=== PATIENT | male | born 1955 | race Caucasian/White ===

== ENCOUNTER 2016-11-27 14:13 | Emergency (ER) | payer SELFPAY ==
--- NOTE | 2016-11-27 15:54 | DIAGNOSTIC IMAGING REPORT ---
PROCEDURE: CTA THORAX ABDOMEN PELVIS INDICATION: JAUNDICE TECHNIQUE: 116 ml of Isovue 370 injected intravenously and axial images were obtained of the entire thorax, abdomen, and pelvis with 3D MIP sagittal and coronal reformations. COMPARISON: None. FINDINGS: THORAX: Minor atherosclerosis of the aorta. No dissection or aneurysm. Normal pulmonary arteries without evidence of pulmonary embolus. Respiratory artifacts. Severe emphysema. Approximate 3.5 x 2.5 cm right hilar mass/adenopathy. 1.1 x 1.8 cm subcarinal lymph node. No effusion. Normal heart size. Moderate degenerative changes of the spine. ABDOMEN: Mild atherosclerosis of the aorta. No dissection. Enlarged liver (21 cm) with multiple ill-defined hypoenhancing liver masses, largest in the left hepatic lobe, 7 cm. Enlarged magui hepatis nodes, 4.5 cm which appears to account for the moderate intrahepatic ductal dilation. CBD not dilated. Enlarged right periaortic lymph nodes, 3.5 cm and 1.5 cm right retrocrural lymph node. Small ascites. Gallbladder sludge. Thickening of the gallbladder wall which is likely due to ascites. There is a 3 x 1.5 cm cystic mass in the tail of the pancreas. 2 cm hypoenhancing splenic lesion. 1.8 cm left adrenal mass. Right adrenal gland and the kidneys are unremarkable. There is thickening of the colonic wall which may be due to ascites colitis is a consideration. PELVIS: Mild atherosclerosis. No dissection or aneurysm. Appendix is not clearly visualized. Mild wall thickening of the sigmoid colon. Mildly enlarged prostate (5 cm). Normal bladder. Small ascites. Mild degenerative changes of the spine. IMPRESSION: 1. Mild atherosclerosis without dissection or aneurysm 2. Severe emphysema with right hilar mass/adenopathy. There are bulky magui hepatis and right periaortic lymph nodes with multiple hepatic masses, splenic mass, left adrenal mass, tail of pancreas cystic mass and small ascites. Differential diagnosis includes lymphoma versus lung primary with metastases. Primary pancreatic neoplasm is less likely. Recommend CT guided biopsy of liver lesions. 3. Moderate intrahepatic ductal dilation secondary to the magui hepatis adenopathy/mass 4. Thickening of the colonic wall likely due to ascites. Colitis is less likely. Correlate clinically. 5. Gallbladder sludge 6. Results discussed with Felisha Burger. All CT scans at this facility use dose modulation, iterative reconstruction, and/or weight-based dosing when appropriate to reduce radiation dose to as low as reasonably achievable.
--- NOTE | 2016-11-27 16:09 | DIAGNOSTIC IMAGING REPORT ---
PROCEDURE: XR CHEST 1 VIEW INDICATION: SHORTNESS OF BREATH TECHNIQUE: Portable AP view 03:40 p.m. COMPARISON: Chest CT 11/27/2016 FINDINGS: Lungs are clear. No acute infiltrates. There is right hilar adenopathy. IMPRESSION: 1. Lungs clear. 2. Right hilar adenopathy.
--- NOTE | 2016-11-27 17:10 | ED NURSING NOTES ---
Clinical Report - Nurses [facility] [address] [place] [address] 11/27/2016 14:15 Patient: ZOHREH FRASER TRIAGE Triage time 14:25. Acuity: LEVEL 3. Chief Complaint: ABDOMINAL PAIN. No acute distress. SEPSIS SCREEN: Sepsis Screen. Negative (no infection suspected/documented). Temperature not greater than 38.3 degrees C (101 degrees F). Heart rate not greater than 90. Respiratory rate not greater than 20. FRANK COMA SCORE: Frank Coma Scale: 15- eyes open spontaneously (4); best verbal response- oriented x 4 (5); best motor response- obeys commands (6). --14:36 Mora Cobos R.N. 14:25 11/27/16. BP: 119/65. HR: 74. RR: 18. O2 saturation: 100% on room air. Temp: 97.5 F (axillary). Pain level now: 03/19. --14:36 Mora Cobos R.N. Acuity: LEVEL 2. --14:36 Mora Cobos R.N. Weight: 63.5 kg stated. Height/Length: 72 inches Per Patient. BMI: 19. --14:26 Mora Cobos R.N. Medications Ex-Lax Oral. --14:30 Mora Cobos R.N. Ibuprofen Oral. --14:30 Mora Cobos R.N. Vitamins/Minerals Oral. --14:31 Mora Cobos R.N. Allergies No Known Drug Allergy. --14:31 Mora Cobos R.N. Medication/allergy information source: the patient. --14:36 Mora Cobos R.N. History Arrived by private vehicle. Historian: patient and family. Accompanied by family. Primary physician (francisco javier). ( hasn't eaten x3 days, abd pain x 3 days, SOB x 1 week.). Onset. (3 days ago). Treatment PREVENTIVE MEDICINE SPECIALIST: None. SOCIAL HX: Heavy tobacco smoker (cigarette)- 1-2 packs per day. Alcohol use. Patient is a recovering alcoholic. No drug use. --14:36 Mora Cobos R.N. SOCIAL HX: ( SENIOR DRAFTER at bedside). --14:41 Mora Cobos R.N. SOCIAL HX: ( triage BP was assessed on left arm). --15:25 Mora Cobos R.N. PROBLEMS: Jaundice. Liver failure. Hypertension. --14:32 Mora Cobos R.N. ADDITIONAL SURGERIES: Chest tube . --14:32 Mora Cobos R.N. Interventions ID band on patient. To treatment room. --14:36 Mora Cobos R.N. PHYSICAL ASSESSMENT To room via wheelchair. GENERAL / NEURO / PSYCH: Alert. Oriented X 4. Appears in pain. RESPIRATORY: Mild respiratory distress. CVS: Capillary refill less than 2 seconds. GI / : Abdominal distention. ( notable upper abdominal pulsating, midline). SKIN: ( extensive marked jaundice). --14:38 Mora Cobos R.N. EXTREMITIES: Bilateral 4+ edema of the lower extremities involving both feet, both ankles and both lower legs. --14:41 Mora Cobos R.N. NURSING PROGRESS NOTES The plan of care for this patient has been created. environmental monitoring specialist, pulse oximeter and NIBP monitor placed on patient. Patient gowned. Head of bed elevated. Call light placed in reach. Side rails up x 2. Bed placed in lowest position. Brakes of bed on. Patient ready for evaluation- chart flagged. --14:41 Mora Cobos R.N. 14:33 11/27/2016 Site #1 started via IV in the right forearm with an 20g angiocath, with aseptic technique and good blood return; one attempt. Blood drawn: rainbow set. Labeled in the presence of the patient and sent to the lab. Saline lock flushed with 10 mL saline. --14:43 Mora Cobos R.N. 14:43 11/27/2016 Site #2 started via IV in the left forearm with an 20g angiocath, with aseptic technique and good blood return; one attempt. Blood drawn: cultures x1. Labeled in the presence of the patient and sent to the lab. Saline lock flushed with 10 mL saline (lactate). --14:44 Mroa Cobos R.N. 14:45. Patient transported to CT by stretcher with nurse. --15:14 Mora Cobos R.N. 15:10. Patient returned from CT by stretcher with nurse. --15:14 Mora Cobos R.N. 15:14 11/27/16. BP: 127/77 taken on the right arm. HR: 70. RR: 18. O2 saturation: 100%. Pain level now: 11/17. --15:15 Mora Cobos R.N. 15:18 11/27/2016 Started bag #1 1000 mL IV Fluids IV NS (Saline); at 999 mL/hr over 1 hour(s) via site #1 via IV pump. Allergies verified and confirmed 5 rights. IV patency established. IV site checked: no pain, redness, or swelling. IV flushed thoroughly pre- and post-medication administration. --15:18 Sandy Real R.N. Reassessment after procedure and intervention. He reports no complaints and he is calm and resting quietly. --15:21 Mora Cobos R.N. 15:40 11/27/16. Critical value relayed to ED by Zoran Berrios. Critical value received by JULIET Delgado. total bili 26. K: 2.8. Critical value read back. Verified lab result and patient ID. ED physician notifed of critical value. --15:40 Sandy Real R.N. 15:30. Patient ID band checked for patient name and birthdate: patient confirmed. Instructions provided to collect clean catch urine and patient verbalized understanding. Clean catch urine collected with return of brown-colored urine; sample sent to lab for urinalysis, culture and drug screen. Specimen labeled in the presence of the patient (black urine). --15:54 Mora Cobos R.N. 16:22 11/27/2016 IV Fluids IV NS Discontinued: bag #1 infused. Total amount infused: 1000 mL. IV patency established. IV site checked: no pain, redness, or swelling. IV flushed thoroughly. --16:37 Mora Cobos R.N. 16:27 11/27/2016 Started bag #2 1000 mL IV Fluids IV NS (Saline); at 200 mL/hr over 2 hour(s) via site #1 via IV pump. Allergies verified and confirmed 5 rights. IV patency established. IV site checked: no pain, redness, or swelling. IV flushed thoroughly pre- and post-medication administration. Completed per protocol. --16:37 Mora Cobos R.N. 16:28 11/27/2016 Started 20 meq of KCL (Potassium Chloride) IVPB in bag #1 100 mL; at 50 mL/hr over 2 hour(s) via site #1 via IV pump. Allergies verified and confirmed 5 rights. IV patency established. IV site checked: no pain, redness, or swelling. IV flushed thoroughly pre- and post-medication administration. Completed per protocol. --16:38 Mora Cobos R.N. 16:47 11/27/16. BP: 140/86. HR: 66. RR: 16. O2 saturation: 100% on nasal cannula at 2 liters/minute. --16:47 Sami Rosado R.N. 16:47 11/27/16. --16:47 Sami Rosado R.N. 16:48 11/27/16. Cardiac rhythm: normal sinus rhythm; (67). --16:48 Sami Rosado R.N. ( pt. up using commode. 100cc urine output. pt. sitting upright on gourney.). --17:08 Natalee Sheehan ER TechMartha 17:34 11/27/2016 Toradol IVP 30 mg given over 1 minute(s) via site #1. Allergies verified and confirmed 5 rights. IV patency established. IV site checked: no pain, redness, or swelling. IV flushed thoroughly pre- and post-medication administration. IVP given by RN. --17:36 Mora Cobos R.N. 17:47 11/27/16. BP: 129/67. HR: 66. RR: 15. O2 saturation: 100%. Pain level now 7/10. --17:47 Mora Cobos R.N. The patient is calm and resting quietly. --17:47 Mora Cobos R.N. 18:07 11/27/2016 Zofran (Ondansetron HCl) IVP 4 mg given over 2 minute(s) via site #1. Allergies verified and confirmed 5 rights. IV patency established. IV site checked: no pain, redness, or swelling. IV flushed thoroughly pre- and post-medication administration. IVP given by RN. --18:07 Mora Cobos R.N. 18:08 11/27/2016 Dilaudid (HYDROmorphone HCl PF) IVP 1 mg given over 2 minute(s) via site #1. Allergies verified, confirmed 5 rights and sedative warning given to the patient. IV patency established. IV site checked: no pain, redness, or swelling. IV flushed thoroughly pre- and post-medication administration. IVP given by RN. --18:14 Mora Cobos R.N. 18:16 11/27/2016 IV Fluids IV NS Continued: upon transfer at the rate of 200 mL/hr. 620 mL remaining bag #2. IV patency established. IV site checked: no pain, redness, or swelling. IV flushed thoroughly. --18:16 Mora Cobos R.N. 18:17 11/27/2016 KCL IVPB Continued: upon transfer at the rate of 50 mL/hr. 10 mL remaining bag #1. IV patency established. IV site checked: no pain, redness, or swelling. IV flushed thoroughly. --18:17 Mora Cobos R.N. DISPOSITION / DISCHARGE Report was given to a nurse via a phone call. Report included patient's care, treatment, medications, reviewed medication reconcilliation, and condition (including any recent changes or anticipated changes). All questions were answered. Report was acknowledged and care was transferred. (Gina). --18:01 Mora Cobos R.N. Transferred to [facility]. Summary of care provided to transport team, EMS and transfer facility via paper. Transported via ambulance by nurse and EMS with IV. --18:16 Mora Cobos R.N. 18:14 11/27/16. BP: 116/67. HR: 67. RR: 18. O2 saturation: 98%. Pain level now 10/17. --18:16 Mora Cobos R.N. Locked/Released at 11/27/2016 22:34 by Mora Cobos R.N.
--- NOTE | 2016-11-27 17:10 | ED CLINICAL REPORT ---
Clinical Report - Physicians/Mid Levels [facility] [address] [place] [address] 11/27/2016 14:15 Patient: ZOHREH FRASER PROGRESS AND PROCEDURES Course of Care: this is a duplicate chart the patient was seen by Ms. Burger. (Electronically signed by Anjum Rodriges MD 11/28/2016 9:44) Time Seen: 1437; upon arrival, initial patient contact, initial documentation, patient care assumed. Arrived- By private vehicle. Historian- patient and son. HISTORY OF PRESENT ILLNESS Chief Complaint: ABDOMINAL PAIN. At its maximum, severity described as moderate. When seen in the E.D., severity described as moderate. Modifying factors. Not worsened by anything. Not relieved by anything. This started about 3 days ago and is still present. It was abrupt in onset and has been constant. It is described as "pain". No radiation. It is described as located in the epigastric area and in the upper abdomen. No nausea, vomiting or diarrhea. He has had loss of appetite (for 3 days ago). No additional abdominal pain. (pcp Sanju[place]). No recent travel. Similar symptoms previously: None. Recent medical care: The patient was seen recently in the office. ( saw his pcp october 23, found out his liver wasn't working, no f/u, says he has no insurance and no one wanted to see him). REVIEW OF SYSTEMS No constipation, black stools, hematemesis, difficulty with urination or pain with urination. No urinary frequency, bloody stools, fever or chest pain. He has had difficulty breathing (also feels sob). feet swelling about 1 1/2 weeks, and having trouble breathing, gets sob and worse when lying down, been sleeping sitting up. All systems otherwise negative, except as recorded above. PAST HISTORY See nurses notes. PROBLEMS: Jaundice. Liver failure. Hypertension. --14:32 Mora Cobos R.N. ADDITIONAL SURGERIES: Chest tube . --14:32 Mora Cobos R.N. SOCIAL HISTORY Heavy tobacco smoker. Alcohol use. Patient is a longstanding alcoholic. No drug use. No recent travel. Is a local resident. FAMILY HISTORY Negative. ADDITIONAL NOTES The nursing notes have been reviewed with agreement regarding the chief complaint, HPI, ROS, PMH and patient medications and allergies. PHYSICAL EXAM Vital Signs: 11/27/2016 14:25 BP: 119/65. HR: 74. RR: 18. O2 saturation: 100%. Temp: 97.5 F. Pain level now: 03/19. Have been reviewed as normal and appear to be correct. Appearance: Alert. Oriented X3. No acute distress. Eyes: Pupils equal, round and reactive to light. Eyes inspection not normal. Severe scleral icterus. ENT: Ears normal. Nose normal. Pharynx normal. Neck: Normal inspection. Neck supple. CVS: Normal heart rate and rhythm. Heart sounds normal. Pulses normal. Respiratory: No respiratory distress. Breath sounds normal. Chest nontender. Abdomen: Soft. Mild tenderness in the right upper quadrant and epigastric area. Bowel sounds normal. No organomegaly. No mass. Distention. Tenderness present. No mass present. (thin habitus, and mild ascites). Back: Normal inspection. Skin: Skin warm and dry. Abnormal skin color. No rash. Normal skin turgor. Jaundiced. (extreme jaundice). Extremities: Lower extremity edema present. Bilateral severe 3+ pitting edema of the lower extremities involving both feet, both ankles and both lower legs. Extremities exhibit normal ROM. Neuro: Oriented X 3. No motor deficit. No sensory deficit. LABS, X-RAYS, AND EKG EKG: EKG time: (1435). Rate: 67. Occasional unifocal wide-complex and ventricular ectopic beats. Consistent with premature ventricular contractions. Non-specific ST segment / T wave abnormalities. Interpretation time: 1445. Abdominal CT: . IMPRESSION: 1. Mild atherosclerosis without dissection or aneurysm 2. Severe emphysema with right hilar mass/adenopathy. There are bulky magui hepatis and right periaortic lymph nodes with multiple hepatic masses, splenic mass, left adrenal mass, tail of pancreas cystic mass and small ascites. Differential diagnosis includes lymphoma versus lung primary with metastases. Primary pancreatic neoplasm is less likely. Recommend CT guided biopsy of liver lesions. 3. Moderate intrahepatic ductal dilation secondary to the magui hepatis adenopathy/mass 4. Thickening of the colonic wall likely due to ascites. Colitis is less likely. Correlate clinically. 5. Gallbladder sludge 6. Results discussed with Felisha Burger. All CT scans at this facility use dose modulation, iterative reconstruction, and/or weight-based dosing when appropriate to reduce radiation dose to as low as reasonably achievable. Electronically Final signed by:Bill Palomino MD 11/27/2016 3:53:44 PM Technologist: DAYLIN. The study was interpreted by the radiologist and discussed with the radiologist. Interpretation time: 1530. Laboratory Tests: CBC w Diff: (RAVINDER: 11/27/2016 14:35) ( [facility] 11/27/2016 15:45) Final results Test Result Flag Units (Reference) WHITE BLOOD COUNT 15.1 H K/uL (4.5-11.5) RED BLOOD COUNT 3.38 L M/uL (4.50-5.90) HEMOGLOBIN 10.7 L gm/dL (13.5-17.5) HEMATOCRIT 30.7 L % (41.0-53.0) MEAN CELL VOLUME 91 fL (80-100) MEAN CORPUSCULAR HGB 32 pg (26-34) MEAN CORPUSCULAR HGB CONC 35 g/dL (31-37) RED CELL DISTRIBUTION WIDTH 17.2 H % (11.6-14.8) PLATELET COUNT 385 K/uL (150-400) POLY % 84 H % (50-75) BAND % 2 % (0-8) LYMPH 7 L % (25-40) MONO 5 % (3-14) EOSINOPHIL % 2 % (0-4) BASOPHIL % 0 % (0-2) METAMYELOCYTE % 0 % (0-1) MYELOCYTE 0 % (0-1) OTHER CELL TYPE 0 ANISOCYTOSIS 1+ TARGET CELLS 2+ PT with INR: (RAVINDER: 11/27/2016 14:35) ( MsgRcvd 11/27/2016 15:12) Final results Test Result Flag Units (Reference) INR 2.0 H (0.8-1.2) Low Intensity Therapy: INR 1.5-2.0 PT range 18.5-23.1Mod.Intensity Therapy: INR 2.0-3.0 PT range 23.1-31.5High Intensity Therapy: INR 2.5-3.5 PT range 27.4-35.5High Intensity Therapy 2: INR 3.0-4.0 PT range 31.5-39.3 APTT 36 H SECONDS (24-34) D-DIMER QUANTITATIVE 2.74 H ug/mLFEU (0.27-0.52) The primary value of this quantitative assay relates toits negative predictive value (i.e. exclusion) of pulmonaryembolism/deep vein thrombosis/DIC.Elevated levels of d-dimer may also occur with:, age, cancer, inflammation, liver disease,post-op, infection, hematoma, coronary disease, peripheralarteriopathy, bleeding disorders and thrombolytic treatment.Results should be correlated with other clinical andradiological data.Testing Methodology: Latex Immunoassay BNP: (RAVINDER: 11/27/2016 14:35) ( [facility] 11/27/2016 15:19) Final results Test Result Flag Units (Reference) B-TYPE NATRIURETIC PEPTIDE 198 H pg/ml (5-100) CMP: (RAVINDER: 11/27/2016 14:35) ( [facility] 11/27/2016 15:40) IP Test Result Flag Units (Reference) GLUCOSE 105 mg/dL (70-110) BUN 24 H mg/dL (7-18) CREATININE 0.8 mg/dL (0.6-1.3) Estimated GFR >60 mL/min Estimated GFR- >60 mL/min Note: Persistent reduction over 3 months in eGFR<60 mL/min/1.73 m2 defines CKD. Patients with eGFR values>=60 mL/min/1.73 m2 may also have CKD if evidence ofpersistent proteinuria. Additional information may be foundat [email or web address].org. SODIUM 140 mmol/L (136-145) POTASSIUM 2.8 *L mmol/L (3.5-5.1) CRITICAL RESULTS CALLEDCalled to [facility] 11/27/16 9229Were 2 patient identifiers used? YWas the result read back? Y CHLORIDE 100 mmol/L (98-107) CARBON DIOXIDE 29 mmol/L (21-32) CALCIUM 10.5 H mg/dL (8.5-10.1) TOTAL PROTEIN 6.4 g/dL (6.4-8.2) ALBUMIN 2.1 L g/dL (3.3-5.0) AST (SGOT) 199 H U/L (15-37) ALT (SGPT) 207 H U/L (12-78) LIPASE 432 H U/L (73-393) AMYLASE 103 U/L (25-115) CPK 70 U/L (24-260) TROPONIN I <0.05 L ng/mL (0.00-1.5) TROPONIN REFERENCE RANGE:<0.1 NEGATIVE0.1-1.5 INDETERMINANT>1.5 POSITIVE ETHYL ALCOHOL < 3.0 L mg/dL (3-10) . PROGRESS AND PROCEDURES Course of Care: 1437. called into room by staff, nurse Castillo reporting she saw and felt pulsatile mass when laying pt down 1500. went to ct to check on pt and nurse, pt tolerating ct well enough, initial images that I reviewed do not show aaa 16:01 11/27/16. asked sales utility representative to call pcp, Dr Wei, biomedical engineering internship to have him call us back, message given re necessary admit 1605. had long discussion with pt and his son re labs, need for biopsy, concern for liver failure and possible metastatic ca, code status, full code for now, and they both want son to be medical power of deputy commonwealth's attorney son and pt not happy with pcp saying he just blew them off and did nothing a month ago, want new dr, and really [facility]. Spoke to Dr Wei re possible admit and pt status, he was telling me this is all chronic, give k here and fix his low k, vs normal, no need for admit just for biopsy in am, pt can have biopsy as outpatient, pt needs needle guided ct biopsy, went over all his labs, and again Dr Wei saying for 3rd time, pt can be dc with normal vs, admitting for low K and biopsy is not reason to admit spoke to nurse castillo re admit vs dc, she and myself are not comfortable dc'ing this pt home 1635. Spoke to Dr Rodriges, aware of pt's case, agrees with my plan to try and admit or transfer and my uneasiness in dc pt home 1645. spoke with our hospitalist extension service specialist in charge, Dr Miller, discussed pt's case, both agreed best care for pt would be to transfer, could admit here and reverse hypokalemia, but would need transfer later or outpatient f/u for biopsy, CA work up, etc, and another facility could do all of that 170. Spoke to Dr Armstrong, extension service specialist in charge hospitalist for [place], pt's case reviewed with him and he agreed to accept pt, do necessary consults re GI, Oncology, make sure biopsy was ordered, help pt with abnormal labs and hypokalemia, help pt with resources later if needed 1715. had ally Lobo call [facility] back to speak to household worker for a bed for our pt, acls transport 1725. pt and family aware of transfer, thanked me numerous times for me helping them, son has been tearful on and off thru the visit 17:52 11/27/16. Ally Lobo informing me [facility] called back with a bed, transport called 18:01 11/27/16. transfer form completed 18:25 11/27/16. EMS here for transport. 11/27/2016 15:14 BP: 127/77. HR: 70. RR: 18. O2 saturation: 100%. Pain level now: 6/10. Vital Signs: have been reviewed as normal and appear to be correct. Critical care performed (60 minutes). Time includes: direct patient care, coordination of patient care, interpretation of data (laboratory data), medical consultation and documentation of patient care- see progress notes. Discussed case with patient's primary care provider, (did not agree on plan, see other notes). Reviewed test results and need for additional work-up. Differential Diagnosis: I considered gastritis, gastroenteritis, peptic ulcer disease, gastroesophageal reflux disease, biliary colic, cholecystitis, cholelithiasis, hepatitis, pancreatitis, common bile duct obstruction, cholangitis, intraabdominal abscess and ascites as a possible cause of abdominal pain in this patient. This is a partial list of diagnoses considered. (cirrhosis, liver failure). Above considerations are based on history, physical exam, reassessment, laboratory data, EKG and other information. Differential diagnosis was discussed with patient. Disposition: Benefits, risks and alternatives to transfer explained to patient and family. Transferred to [facility]. Summary of care provided to transport team, EMS and transfer facility via paper and digital media. 17:10. Condition: good and stable. CLINICAL IMPRESSION 11/27/2016 18:14 BP: 116/67. HR: 67. RR: 18. O2 saturation: 98%. Vital Signs: have been reviewed as normal and appear to be correct. Alcoholic cirrhosis of the liver. Bilateral pedal edema secondary to unknown cause. Ascites, secondary to alcoholic liver disease, cirrhosis and alcoholic hepatitis. Hypokalemia. (Electronically signed by Felisha Burger A.R.NMarva 11/27/2016 22:05)
--- NOTE | 2016-11-27 17:10 | ED CLINICAL REPORT ---
Clinical Report - Physicians/Mid Levels [facility] [address] [place] [address] 11/27/2016 14:15 Patient: ZOHREH FRASER PROGRESS AND PROCEDURES Course of Care: this is a duplicate chart the patient was seen by Ms. Burger. (Electronically signed by Anjum Rodriges MD 11/28/2016 9:44) Time Seen: 1437; upon arrival, initial patient contact, initial documentation, patient care assumed. Arrived- By private vehicle. Historian- patient and son. HISTORY OF PRESENT ILLNESS Chief Complaint: ABDOMINAL PAIN. At its maximum, severity described as moderate. When seen in the E.D., severity described as moderate. Modifying factors. Not worsened by anything. Not relieved by anything. This started about 3 days ago and is still present. It was abrupt in onset and has been constant. It is described as "pain". No radiation. It is described as located in the epigastric area and in the upper abdomen. No nausea, vomiting or diarrhea. He has had loss of appetite (for 3 days ago). No additional abdominal pain. (pcp Sanjuana). No recent travel. Similar symptoms previously: None. Recent medical care: The patient was seen recently in the office. ( saw his pcp october 23, found out his liver wasn't working, no f/u, says he has no insurance and no one wanted to see him). REVIEW OF SYSTEMS No constipation, black stools, hematemesis, difficulty with urination or pain with urination. No urinary frequency, bloody stools, fever or chest pain. He has had difficulty breathing (also feels sob). feet swelling about 1 1/2 weeks, and having trouble breathing, gets sob and worse when lying down, been sleeping sitting up. All systems otherwise negative, except as recorded above. PAST HISTORY See nurses notes. PROBLEMS: Jaundice. Liver failure. Hypertension. --14:32 Mora Cobos R.N. ADDITIONAL SURGERIES: Chest tube . --14:32 Mora Cobos R.N. SOCIAL HISTORY Heavy tobacco smoker. Alcohol use. Patient is a longstanding alcoholic. No drug use. No recent travel. Is a local resident. FAMILY HISTORY Negative. ADDITIONAL NOTES The nursing notes have been reviewed with agreement regarding the chief complaint, HPI, ROS, PMH and patient medications and allergies. PHYSICAL EXAM Vital Signs: 11/27/2016 14:25 BP: 119/65. HR: 74. RR: 18. O2 saturation: 100%. Temp: 97.5 F. Pain level now: 03/19. Have been reviewed as normal and appear to be correct. Appearance: Alert. Oriented X3. No acute distress. Eyes: Pupils equal, round and reactive to light. Eyes inspection not normal. Severe scleral icterus. ENT: Ears normal. Nose normal. Pharynx normal. Neck: Normal inspection. Neck supple. CVS: Normal heart rate and rhythm. Heart sounds normal. Pulses normal. Respiratory: No respiratory distress. Breath sounds normal. Chest nontender. Abdomen: Soft. Mild tenderness in the right upper quadrant and epigastric area. Bowel sounds normal. No organomegaly. No mass. Distention. Tenderness present. No mass present. (thin habitus, and mild ascites). Back: Normal inspection. Skin: Skin warm and dry. Abnormal skin color. No rash. Normal skin turgor. Jaundiced. (extreme jaundice). Extremities: Lower extremity edema present. Bilateral severe 3+ pitting edema of the lower extremities involving both feet, both ankles and both lower legs. Extremities exhibit normal ROM. Neuro: Oriented X 3. No motor deficit. No sensory deficit. LABS, X-RAYS, AND EKG EKG: EKG time: (1435). Rate: 67. Occasional unifocal wide-complex and ventricular ectopic beats. Consistent with premature ventricular contractions. Non-specific ST segment / T wave abnormalities. Interpretation time: 1445. Abdominal CT: . IMPRESSION: 1. Mild atherosclerosis without dissection or aneurysm 2. Severe emphysema with right hilar mass/adenopathy. There are bulky magui hepatis and right periaortic lymph nodes with multiple hepatic masses, splenic mass, left adrenal mass, tail of pancreas cystic mass and small ascites. Differential diagnosis includes lymphoma versus lung primary with metastases. Primary pancreatic neoplasm is less likely. Recommend CT guided biopsy of liver lesions. 3. Moderate intrahepatic ductal dilation secondary to the magui hepatis adenopathy/mass 4. Thickening of the colonic wall likely due to ascites. Colitis is less likely. Correlate clinically. 5. Gallbladder sludge 6. Results discussed with Felisha Burger. All CT scans at this facility use dose modulation, iterative reconstruction, and/or weight-based dosing when appropriate to reduce radiation dose to as low as reasonably achievable. Electronically Final signed by:Bill Palomino MD 11/27/2016 3:53:44 PM Technologist: DAYLIN. The study was interpreted by the radiologist and discussed with the radiologist. Interpretation time: 1530. Laboratory Tests: CBC w Diff: (RAVINDER: 11/27/2016 14:35) ( [facility] 11/27/2016 15:45) Final results Test Result Flag Units (Reference) WHITE BLOOD COUNT 15.1 H K/uL (4.5-11.5) RED BLOOD COUNT 3.38 L M/uL (4.50-5.90) HEMOGLOBIN 10.7 L gm/dL (13.5-17.5) HEMATOCRIT 30.7 L % (41.0-53.0) MEAN CELL VOLUME 91 fL (80-100) MEAN CORPUSCULAR HGB 32 pg (26-34) MEAN CORPUSCULAR HGB CONC 35 g/dL (31-37) RED CELL DISTRIBUTION WIDTH 17.2 H % (11.6-14.8) PLATELET COUNT 385 K/uL (150-400) POLY % 84 H % (50-75) BAND % 2 % (0-8) LYMPH 7 L % (25-40) MONO 5 % (3-14) EOSINOPHIL % 2 % (0-4) BASOPHIL % 0 % (0-2) METAMYELOCYTE % 0 % (0-1) MYELOCYTE 0 % (0-1) OTHER CELL TYPE 0 ANISOCYTOSIS 1+ TARGET CELLS 2+ PT with INR: (RAVINDER: 11/27/2016 14:35) ( MsgRcvd 11/27/2016 15:12) Final results Test Result Flag Units (Reference) INR 2.0 H (0.8-1.2) Low Intensity Therapy: INR 1.5-2.0 PT range 18.5-23.1Mod.Intensity Therapy: INR 2.0-3.0 PT range 23.1-31.5High Intensity Therapy: INR 2.5-3.5 PT range 27.4-35.5High Intensity Therapy 2: INR 3.0-4.0 PT range 31.5-39.3 APTT 36 H SECONDS (24-34) D-DIMER QUANTITATIVE 2.74 H ug/mLFEU (0.27-0.52) The primary value of this quantitative assay relates toits negative predictive value (i.e. exclusion) of pulmonaryembolism/deep vein thrombosis/DIC.Elevated levels of d-dimer may also occur with:, age, cancer, inflammation, liver disease,post-op, infection, hematoma, coronary disease, peripheralarteriopathy, bleeding disorders and thrombolytic treatment.Results should be correlated with other clinical andradiological data.Testing Methodology: Latex Immunoassay BNP: (RAVINDER: 11/27/2016 14:35) ( [facility] 11/27/2016 15:19) Final results Test Result Flag Units (Reference) B-TYPE NATRIURETIC PEPTIDE 198 H pg/ml (5-100) CMP: (RAVINDER: 11/27/2016 14:35) ( [facility] 11/27/2016 15:40) IP Test Result Flag Units (Reference) GLUCOSE 105 mg/dL (70-110) BUN 24 H mg/dL (7-18) CREATININE 0.8 mg/dL (0.6-1.3) Estimated GFR >60 mL/min Estimated GFR- >60 mL/min Note: Persistent reduction over 3 months in eGFR<60 mL/min/1.73 m2 defines CKD. Patients with eGFR values>=60 mL/min/1.73 m2 may also have CKD if evidence ofpersistent proteinuria. Additional information may be foundat [email or web address].org. SODIUM 140 mmol/L (136-145) POTASSIUM 2.8 *L mmol/L (3.5-5.1) CRITICAL RESULTS CALLEDCalled to [facility] 11/27/16 1885Were 2 patient identifiers used? YWas the result read back? Y CHLORIDE 100 mmol/L (98-107) CARBON DIOXIDE 29 mmol/L (21-32) CALCIUM 10.5 H mg/dL (8.5-10.1) TOTAL PROTEIN 6.4 g/dL (6.4-8.2) ALBUMIN 2.1 L g/dL (3.3-5.0) AST (SGOT) 199 H U/L (15-37) ALT (SGPT) 207 H U/L (12-78) LIPASE 432 H U/L (73-393) AMYLASE 103 U/L (25-115) CPK 70 U/L (24-260) TROPONIN I <0.05 L ng/mL (0.00-1.5) TROPONIN REFERENCE RANGE:<0.1 NEGATIVE0.1-1.5 INDETERMINANT>1.5 POSITIVE ETHYL ALCOHOL < 3.0 L mg/dL (3-10) . PROGRESS AND PROCEDURES Course of Care: 1437. called into room by staff, nurse Castillo reporting she saw and felt pulsatile mass when laying pt down 1500. went to ct to check on pt and nurse, pt tolerating ct well enough, initial images that I reviewed do not show aaa 16:01 11/27/16. asked brush hand to call pcp, Dr Wei, certified medical coder to have him call us back, message given re necessary admit 1605. had long discussion with pt and his son re labs, need for biopsy, concern for liver failure and possible metastatic ca, code status, full code for now, and they both want son to be medical power of tong setter son and pt not happy with pcp saying he just blew them off and did nothing a month ago, want new dr, and [facility]. Spoke to Dr Wei re possible admit and pt status, he was telling me this is all chronic, give k here and fix his low k, vs normal, no need for admit just for biopsy in am, pt can have biopsy as outpatient, pt needs needle guided ct biopsy, went over all his labs, and again Dr Wei saying for 3rd time, pt can be dc with normal vs, admitting for low K and biopsy is not reason to admit spoke to nurse castillo re admit vs dc, she and myself are not comfortable dc'ing this pt home 1635. Spoke to Dr Rodriges, aware of pt's case, agrees with my plan to try and admit or transfer and my uneasiness in dc pt home 1645. spoke with our hospitalist liquefaction and regasification helper, Dr Miller, discussed pt's case, both agreed best care for pt would be to transfer, could admit here and reverse hypokalemia, but would need transfer later or outpatient f/u for biopsy, CA work up, etc, and another facility could do all of that 170. Spoke to Dr Armstrong, liquefaction and regasification helper hospitalist for [facility], pt's case reviewed with him and he agreed to accept pt, do necessary consults re GI, Oncology, make sure biopsy was ordered, help pt with abnormal labs and hypokalemia, help pt with resources later if needed 1715. had ally Lobo call [facility] back to speak to housekeeping aid for a bed for our pt, acls transport 1725. pt and family aware of transfer, thanked me numerous times for me helping them, son has been tearful on and off thru the visit 17:52 11/27/16. Ally Lobo informing me [facility] called back with a bed, transport called 18:01 11/27/16. transfer form completed 18:25 11/27/16. EMS here for transport. 11/27/2016 15:14 BP: 127/77. HR: 70. RR: 18. O2 saturation: 100%. Pain level now: 6/10. Vital Signs: have been reviewed as normal and appear to be correct. Critical care performed (60 minutes). Time includes: direct patient care, coordination of patient care, interpretation of data (laboratory data), medical consultation and documentation of patient care- see progress notes. Discussed case with patient's primary care provider, (did not agree on plan, see other notes). Reviewed test results and need for additional work-up. Differential Diagnosis: I considered gastritis, gastroenteritis, peptic ulcer disease, gastroesophageal reflux disease, biliary colic, cholecystitis, cholelithiasis, hepatitis, pancreatitis, common bile duct obstruction, cholangitis, intraabdominal abscess and ascites as a possible cause of abdominal pain in this patient. This is a partial list of diagnoses considered. (cirrhosis, liver failure). Above considerations are based on history, physical exam, reassessment, laboratory data, EKG and other information. Differential diagnosis was discussed with patient. Disposition: Benefits, risks and alternatives to transfer explained to patient and family. Transferred to [facility]. Summary of care provided to transport team, EMS and transfer facility via paper and digital media. 17:10. Condition: good and stable. CLINICAL IMPRESSION 11/27/2016 18:14 BP: 116/67. HR: 67. RR: 18. O2 saturation: 98%. Vital Signs: have been reviewed as normal and appear to be correct. Alcoholic cirrhosis of the liver. Bilateral pedal edema secondary to unknown cause. Ascites, secondary to alcoholic liver disease, cirrhosis and alcoholic hepatitis. Hypokalemia. (Electronically signed by Felisha Burger A.R.NMarva 11/27/2016 22:05)
--- NOTE | 2016-11-27 17:10 | ED ORDER SUMMARY ---
..... Patient: ZOHREH FRASER OrderSheet [facility] VisitID: [id number] [place], [place] [id number] 61y, M Registration Date/Time: 11/27/2016 ORDER SHEET Weight: 63.5 kg (stated) Allergies: No Known Drug Allergy GENERAL ORDERS: Chest 1V Urgent (14:11/27/2016 Damián JIMENEZ) (Ack 14:27 Johanna Singh) (15:53 KWilliams R.N.) Epidemiologist (Continuous) (14:11/27/2016 Damián JIMENEZ) (14:42 KWilliams R.N.) CBC w Diff Urgent (14:11/27/2016 Damián JIMENEZ) (Ack 14:27 Johanna Singh) (14:42 KWilliams R.N.) CMP Urgent (14:11/27/2016 Damián JIMENEZ) (Ack 14:27 Johanna Singh) (14:42 KWilliams R.N.) UA-Culture if indicated Urgent (14:11/27/2016 Damián JIMENEZ) (Ack 14:27 Johanna Singh) (15:53 KWilliams R.N.) Amylase Urgent (14:11/27/2016 Damián JIMENEZ) (Ack 14:27 Johanna Singh) (14:42 KWilliams R.N.) Lipase Urgent (14:11/27/2016 Damián JIMENEZ) (Ack 14:27 Johanna Singh) (14:42 KWilliams R.N.) D-Dimer Urgent (14:11/27/2016 Damián JIMENEZ) (Ack 14:27 Johanna Singh) (14:42 KWilliams R.N.) PT with INR Urgent (14:11/27/2016 Damián JIMENEZ) (Ack 14:27 Johanna Singh) (14:42 KWilliams R.N.) PTT Urgent (14:11/27/2016 Damián JIMENEZ) (Ack 14:27 Johanna Singh) (14:42 KWilliams R.N.) CPK Urgent (14:25 11/27/2016 Damián JIMENEZ) (Ack 14:27 PWeiler ER Tech1) (14:42 KWilliams R.N.) Troponin-I Urgent (14:25 11/27/2016 Damián JIMENEZ) (Ack 14:27 PWeiler ER Tech1) (14:42 KWilliams R.N.) BNP Urgent (14:25 11/27/2016 Damián JIMENEZ) (Ack 14:27 PWeiler ER Tech1) (14:43 KWilliams R.N.) Pulse oximeter (14:25 11/27/2016 Damián JIMENEZ) (14:42 KWilliams R.N.) EKG - ER Stat (14:25 11/27/2016 Damián JIMENEZ) (Ack 14:27 PWeiler ER Tech1) (14:40 PWeiler ER Tech1) CT Abd/Pel w Cont (No) (pending) Urgent (14:41 11/27/2016 HBivens A.R.N.P.) (Ack 14:44 PWeiler ER Tech1) (15:14 Lucrecia) (15:14 KWilliams R.N.) Ethyl Alcohol Urgent (14:44 11/27/2016 HBivens A.R.N.P.) (Ack 14:47 PWeiler ER Tech1) (15:14 PWeiler ER Tech1) (15:14 KWilliams R.N.) Urine Drug Screen Urgent (14:44 11/27/2016 HBivens A.R.N.P.) (Ack 14:47 PWeiler ER Tech1) (15:53 KWilliams R.N.) Troponin-I Urgent (14:45 11/27/2016 HBivens A.R.N.P.) (Ack 14:47 PWeiler ER Tech1) (15:14 PWeiler ER Tech1) (15:14 KWilliams R.N.) CPK Urgent (14:45 11/27/2016 HBivens A.R.N.P.) (Ack 14:47 PWeiler ER Tech1) (15:14 PWeiler ER Tech1) (15:14 KWilliams R.N.) CTA Thorax/Abdomen (No) (pending) Urgent (14:54 11/27/2016 HBivens A.R.N.P.) (Ack 14:55 PWeiler ER Tech1) (15:14 Lucrecia) (15:14 KWilliams R.N.) BNP Urgent (15:11 11/27/2016 HBivens A.R.N.P.) (Ack 15:14 PWeiler ER Tech1) (15:14 KWilliams R.N.) (15:15 PWeiler ER Tech1) MEDICATION ORDERS: IV FLUIDS: IV Saline Lock (14:25 11/27/2016 Damián JIMENEZ) (14:43 KWilliams R.N.) IV NS : initial bolus 1000 mL (1000 mL/hr), then none - (NOW) (14:42 11/27/2016 HBivens A.R.N.P.) (15:18 MWinterer R.N.) IV Saline Lock (14:42 11/27/2016 HBivens A.R.N.P.) (14:44 KWilliams R.N.) KCl IV 20 meq/100mL (Run no faster than 10 units/hr, HIGH ALERT MEDICATION, NOW, Run no faster than 10 mEq/hr) (16:01 11/27/2016 HBivens A.R.N.P.) (16:38 KWilliams R.N.) IV NS : initial bolus none -, then 200 mL/hr for X1 (NOW) (16:33 11/27/2016 KWilliams R.N. verbal order read back to HBivens A.R.N.P.) (16:37 KWilliams R.N.) Toradol IV 30 mg (NOW) (17:32 11/27/2016 HBivens A.R.N.P.) (17:36 KWilliams R.N.) Dilaudid IV 1 mg (HIGH ALERT MEDICATION, NOW) (18:04 11/27/2016 HBivens A.R.N.P.) (18:14 KWilliams R.N.) Zofran IV 4 mg (NOW) (18:04 11/27/2016 HBivens A.R.N.P.) (18:07 KWilliams R.N.) ORDER SHEET NOTES: [Electronically signed by Felisha Burger (22:05 11/27/2016)] [Electronically signed by Mora Cobos R.N. (22:34 11/27/2016)] [Electronically signed by Anjum Rodriges MD (09:44 11/28/2016)] [Electronically locked/signed by Mora Cobos R.N. (22:34 11/27/2016)]
--- NOTE | 2016-11-27 17:10 | ED ORDER SUMMARY ---
..... Patient: ZOHREH FRASER OrderSheet [facility] VisitID: [id number] [place], [place] [id number] 61y, M Registration Date/Time: 11/27/2016 ORDER SHEET Weight: 63.5 kg (stated) Allergies: No Known Drug Allergy GENERAL ORDERS: Chest 1V Urgent (14:11/27/2016 Damián JIMENEZ) (Ack 14:27 Johanna Singh) (15:53 KWilliams R.N.) Digital Technician (Continuous) (14:11/27/2016 Damián JIMENEZ) (14:42 KWilliams R.N.) CBC w Diff Urgent (14:11/27/2016 Damián JIMENEZ) (Ack 14:27 Johanna Singh) (14:42 KWilliams R.N.) CMP Urgent (14:11/27/2016 Damián JIMENEZ) (Ack 14:27 Johanna Singh) (14:42 KWilliams R.N.) UA-Culture if indicated Urgent (14:11/27/2016 Damián JIMENEZ) (Ack 14:27 Johanna Singh) (15:53 KWilliams R.N.) Amylase Urgent (14:11/27/2016 Damián JIMENEZ) (Ack 14:27 Johanna Singh) (14:42 KWilliams R.N.) Lipase Urgent (14:11/27/2016 Damián JIMENEZ) (Ack 14:27 Johanna Singh) (14:42 KWilliams R.N.) D-Dimer Urgent (14:11/27/2016 Damián JIMENEZ) (Ack 14:27 Johanna Singh) (14:42 KWilliams R.N.) PT with INR Urgent (14:11/27/2016 Damián JIMENEZ) (Ack 14:27 Johanna Singh) (14:42 KWilliams R.N.) PTT Urgent (14:11/27/2016 Damián JIMENEZ) (Ack 14:27 Johanna Singh) (14:42 KWilliams R.N.) CPK Urgent (14:25 11/27/2016 Damián JIMENEZ) (Ack 14:27 PWeiler ER Tech1) (14:42 KWilliams R.N.) Troponin-I Urgent (14:25 11/27/2016 Damián JIMENEZ) (Ack 14:27 PWeiler ER Tech1) (14:42 KWilliams R.N.) BNP Urgent (14:25 11/27/2016 Damián JIMENEZ) (Ack 14:27 PWeiler ER Tech1) (14:43 KWilliams R.N.) Pulse oximeter (14:25 11/27/2016 Damián JIMENEZ) (14:42 KWilliams R.N.) EKG - ER Stat (14:25 11/27/2016 Damián JIMENEZ) (Ack 14:27 PWeiler ER Tech1) (14:40 PWeiler ER Tech1) CT Abd/Pel w Cont (No) (pending) Urgent (14:41 11/27/2016 HBivens A.R.N.P.) (Ack 14:44 PWeiler ER Tech1) (15:14 Lucrecia) (15:14 KWilliams R.N.) Ethyl Alcohol Urgent (14:44 11/27/2016 HBivens A.R.N.P.) (Ack 14:47 PWeiler ER Tech1) (15:14 PWeiler ER Tech1) (15:14 KWilliams R.N.) Urine Drug Screen Urgent (14:44 11/27/2016 HBivens A.R.N.P.) (Ack 14:47 PWeiler ER Tech1) (15:53 KWilliams R.N.) Troponin-I Urgent (14:45 11/27/2016 HBivens A.R.N.P.) (Ack 14:47 PWeiler ER Tech1) (15:14 PWeiler ER Tech1) (15:14 KWilliams R.N.) CPK Urgent (14:45 11/27/2016 HBivens A.R.N.P.) (Ack 14:47 PWeiler ER Tech1) (15:14 PWeiler ER Tech1) (15:14 KWilliams R.N.) CTA Thorax/Abdomen (No) (pending) Urgent (14:54 11/27/2016 HBivens A.R.N.P.) (Ack 14:55 PWeiler ER Tech1) (15:14 Lucrecia) (15:14 KWilliams R.N.) BNP Urgent (15:11 11/27/2016 HBivens A.R.N.P.) (Ack 15:14 PWeiler ER Tech1) (15:14 KWilliams R.N.) (15:15 PWeiler ER Tech1) MEDICATION ORDERS: IV FLUIDS: IV Saline Lock (14:25 11/27/2016 Damián JIMENEZ) (14:43 KWilliams R.N.) IV NS : initial bolus 1000 mL (1000 mL/hr), then none - (NOW) (14:42 11/27/2016 HBivens A.R.N.P.) (15:18 MWinterer R.N.) IV Saline Lock (14:42 11/27/2016 HBivens A.R.N.P.) (14:44 KWilliams R.N.) KCl IV 20 meq/100mL (Run no faster than 10 units/hr, HIGH ALERT MEDICATION, NOW, Run no faster than 10 mEq/hr) (16:01 11/27/2016 HBivens A.R.N.P.) (16:38 KWilliams R.N.) IV NS : initial bolus none -, then 200 mL/hr for X1 (NOW) (16:33 11/27/2016 KWilliams R.N. verbal order read back to HBivens A.R.N.P.) (16:37 KWilliams R.N.) Toradol IV 30 mg (NOW) (17:32 11/27/2016 HBivens A.R.N.P.) (17:36 KWilliams R.N.) Dilaudid IV 1 mg (HIGH ALERT MEDICATION, NOW) (18:04 11/27/2016 HBivens A.R.N.P.) (18:14 KWilliams R.N.) Zofran IV 4 mg (NOW) (18:04 11/27/2016 HBivens A.R.N.P.) (18:07 KWilliams R.N.) ORDER SHEET NOTES: [Electronically signed by Felisha Burger (22:05 11/27/2016)] [Electronically signed by Mora Cobos R.N. (22:34 11/27/2016)] [Electronically signed by Anjum Rodriges MD (09:44 11/28/2016)] [Electronically locked/signed by Mora Cobos R.N. (22:34 11/27/2016)]
--- NOTE | 2016-11-28 09:44 | ED MED RECONCILIATION SUMMARY ---
Patient: ZOHREH FRASER Medication Reconciliation Report [facility] VisitID: [id number] [place] [address] 61y, M Registration Date/Time: 11/27/2016 Weight: 63.5 kg Height/Length: 72 in. BMI: 19.0 ALLERGIES: No Known Drug Allergy The patient's Home Medications are listed below: THE FOLLOWING MEDICATIONS NEED TO BE RECONCILED: Ex-Lax Oral Ibuprofen Oral Vitamins/Minerals Oral The source(s) of the original Home Medication information: patient The following Medications were given to the patient in the Emergency Department: IV NS IV Fluids bolus 0, then 999 mL/hr, administered: 11/27/2016 3:18:00 PM IV NS IV Fluids bolus 0, then 200 mL/hr, administered: 11/27/2016 4:27:00 PM KCL [IVPB] IVPB bolus 0, then 20 meq 50 mL/hr, administered: 11/27/2016 4:28:00 PM Toradol [IVP] IVP 30 mg, administered: 11/27/2016 5:34:00 PM Zofran [IVP] IVP 4 mg, administered: 11/27/2016 6:07:00 PM Dilaudid [IVP] IVP 1 mg, administered: 11/27/2016 6:08:00 PM The following Medications were prescribed to the patient: None.
--- NOTE | 2016-11-28 09:44 | ED MED RECONCILIATION SUMMARY ---
Patient: ZOHREH FRASER Medication Reconciliation Report [facility] VisitID: [id number] [place] [address] 61y, M Registration Date/Time: 11/27/2016 Weight: 63.5 kg Height/Length: 72 in. BMI: 19.0 ALLERGIES: No Known Drug Allergy The patient's Home Medications are listed below: THE FOLLOWING MEDICATIONS NEED TO BE RECONCILED: Ex-Lax Oral Ibuprofen Oral Vitamins/Minerals Oral The source(s) of the original Home Medication information: patient The following Medications were given to the patient in the Emergency Department: IV NS IV Fluids bolus 0, then 999 mL/hr, administered: 11/27/2016 3:18:00 PM IV NS IV Fluids bolus 0, then 200 mL/hr, administered: 11/27/2016 4:27:00 PM KCL [IVPB] IVPB bolus 0, then 20 meq 50 mL/hr, administered: 11/27/2016 4:28:00 PM Toradol [IVP] IVP 30 mg, administered: 11/27/2016 5:34:00 PM Zofran [IVP] IVP 4 mg, administered: 11/27/2016 6:07:00 PM Dilaudid [IVP] IVP 1 mg, administered: 11/27/2016 6:08:00 PM The following Medications were prescribed to the patient: None.
--- NOTE | 2016-11-28 09:44 | ED MAR SUMMARY ---
..... Medication Administration Record [facility] [address] [address] Patient: ZOHREH FRASER Visit ID: [id number] 61y, M Weight: 63.5 kg Height/Length: 72 in BMI: 19 ALLERGIES: No Known Drug Allergy Start 15:18 11/27/2016 Sandy Real R.N., Stop 16:22 11/27/2016 Mora Cobos R.N. Medication Administered: IV NS (SALINE), Dose: IV Fluids over 1 hour(s), Rate: 999 mL/hr, Dispensed: 1000 mL bag, Site: #1 right forearm. Medication Ordered: IV NS : initial bolus 1000 mL (1000 mL/hr), then none - (NOW). Start 16:27 11/27/2016 Mora Cobos R.N., Continued Upon Transfer 18:16 11/27/2016 Mora Cobos R.N. Medication Administered: IV NS (SALINE), Dose: IV Fluids over 2 hour(s), Rate: 200 mL/hr, Dispensed: 1000 mL bag, Site: #1 right forearm. Medication Ordered: IV NS : initial bolus none -, then 200 mL/hr for X1 (NOW). Start 16:28 11/27/2016 Mora Cobos R.N., Continued Upon Transfer 18:17 11/27/2016 Mora Cobos R.N. Medication Administered: KCL [IVPB] (POTASSIUM CHLORIDE), Dose: 20 meq IVPB over 2 hour(s), Rate: 50 mL/hr, Dispensed: 100 mL bag, Site: #1 right forearm. Medication Ordered: KCl IV 20 meq/100mL (Run no faster than 10 units/hr, HIGH ALERT MEDICATION, NOW, Run no faster than 10 mEq/hr). Given 17:34 11/27/2016 Mora Cobos R.N. Medication Administered: TORADOL [IVP], Dose: 30 mg IVP over 1 minute(s), Site: #1 right forearm. Medication Ordered: Toradol IV 30 mg (NOW). Given 18:07 11/27/2016 Mora Cobos R.N. Medication Administered: ZOFRAN [IVP] (ONDANSETRON HCL), Dose: 4 mg IVP over 2 minute(s), Site: #1 right forearm. Medication Ordered: Zofran IV 4 mg (NOW). Given 18:08 11/27/2016 Mora Cobos R.N. Medication Administered: DILAUDID [IVP] (HYDROMORPHONE HCL PF), Dose: 1 mg IVP over 2 minute(s), Site: #1 right forearm. Medication Ordered: Dilaudid IV 1 mg (HIGH ALERT MEDICATION, NOW).
--- NOTE | 2016-11-28 09:44 | ED DISCHARGE INSTRUCTIONS ---
Patient: ZOHREH FRASER General Instructions [facility] VisitID: [id number] [address] [place] [address] 61y, M Registration Date/Time: 11/27/2016 (Electronically signed by Anjum Rodriges MD 11/28/2016 9:44) 11/27/2016 18:14 BP: 116/67. HR: 67. RR: 18. O2 saturation: 98%. Vital Signs: have been reviewed as normal and appear to be correct. Alcoholic cirrhosis of the liver. Bilateral pedal edema secondary to unknown cause. Ascites, secondary to alcoholic liver disease, cirrhosis and alcoholic hepatitis. Hypokalemia. (Electronically signed by Felisha Burger, JwNTosinPTosin 11/27/2016 22:05)
--- NOTE | 2016-11-28 09:44 | ED DISCHARGE INSTRUCTIONS ---
Patient: ZOHREH FRASER General Instructions [facility] VisitID: [id number] [address] [place] [address] 61y, M Registration Date/Time: 11/27/2016 (Electronically signed by Anjum Rodriges MD 11/28/2016 9:44) 11/27/2016 18:14 BP: 116/67. HR: 67. RR: 18. O2 saturation: 98%. Vital Signs: have been reviewed as normal and appear to be correct. Alcoholic cirrhosis of the liver. Bilateral pedal edema secondary to unknown cause. Ascites, secondary to alcoholic liver disease, cirrhosis and alcoholic hepatitis. Hypokalemia. (Electronically signed by Felisha Burger, JwNTosinPTosin 11/27/2016 22:05)
--- NOTE | 2016-11-28 09:44 | ED MAR SUMMARY ---
..... Medication Administration Record [facility] [address] [place] [address] Patient: ZOHREH FRASER Visit ID: [id number] 61y, M Weight: 63.5 kg Height/Length: 72 in BMI: 19 ALLERGIES: No Known Drug Allergy Start 15:18 11/27/2016 Sandy Real R.N., Stop 16:22 11/27/2016 Mora Cobos R.N. Medication Administered: IV NS (SALINE), Dose: IV Fluids over 1 hour(s), Rate: 999 mL/hr, Dispensed: 1000 mL bag, Site: #1 right forearm. Medication Ordered: IV NS : initial bolus 1000 mL (1000 mL/hr), then none - (NOW). Start 16:27 11/27/2016 Mora Cobos R.N., Continued Upon Transfer 18:16 11/27/2016 Mora Cobos R.N. Medication Administered: IV NS (SALINE), Dose: IV Fluids over 2 hour(s), Rate: 200 mL/hr, Dispensed: 1000 mL bag, Site: #1 right forearm. Medication Ordered: IV NS : initial bolus none -, then 200 mL/hr for X1 (NOW). Start 16:28 11/27/2016 Mora Cobos R.N., Continued Upon Transfer 18:17 11/27/2016 Mora Cobos R.N. Medication Administered: KCL [IVPB] (POTASSIUM CHLORIDE), Dose: 20 meq IVPB over 2 hour(s), Rate: 50 mL/hr, Dispensed: 100 mL bag, Site: #1 right forearm. Medication Ordered: KCl IV 20 meq/100mL (Run no faster than 10 units/hr, HIGH ALERT MEDICATION, NOW, Run no faster than 10 mEq/hr). Given 17:34 11/27/2016 Mora Cobos R.N. Medication Administered: TORADOL [IVP], Dose: 30 mg IVP over 1 minute(s), Site: #1 right forearm. Medication Ordered: Toradol IV 30 mg (NOW). Given 18:07 11/27/2016 Mora Cobos R.N. Medication Administered: ZOFRAN [IVP] (ONDANSETRON HCL), Dose: 4 mg IVP over 2 minute(s), Site: #1 right forearm. Medication Ordered: Zofran IV 4 mg (NOW). Given 18:08 11/27/2016 Mora Cobos R.N. Medication Administered: DILAUDID [IVP] (HYDROMORPHONE HCL PF), Dose: 1 mg IVP over 2 minute(s), Site: #1 right forearm. Medication Ordered: Dilaudid IV 1 mg (HIGH ALERT MEDICATION, NOW).
== END 2016-11-27 18:19 | disposition short-term general hospital (02) ==
LOC: ED SRH 14:13
DX: K70.31 Alcoholic cirrhosis of liver with ascites (principal); K70.11 Alcoholic hepatitis with ascites; F10.188 Alcohol abuse with other alcohol-induced disorder; E87.6 Hypokalemia; I10 Essential (primary) hypertension; Z79.1 Long term (current) use of non-steroidal anti-inflammatories (NSAID); R60.0 Localized edema; Z79.899 Other long term (current) drug therapy; F17.210 Nicotine dependence, cigarettes, uncomplicated
CPT/HCPCS: 90004; 90100; 90616; 91320; 91556; 91643; 92010; 92235; 92530; 92610; 92720; 92760; 92761; 92762; 92763; 92764; 92765; 92766; 92767; 94001; 94060; 95059